=== PATIENT | male | born 1975 | race African-American/Black ===

== ENCOUNTER 2018-10-14 13:17 | Emergency (ER) | payer BC ==
[~2018-10-14] VITALS: Ht 175.3 cm; Wt 116.2 kg
[2018-10-14 17:44] VITALS: BP 131/87
[2018-10-14] MEDS ORDERED: IBUPROFEN 800MG TABLET PO ONE (17:45)
== END 2018-10-14 19:43 | disposition home or self-care (01) ==
LOC: ER 15:00
DX: S20.219A Contusion of unspecified front wall of thorax, initial encounter (principal); S20.229A Contusion of unspecified back wall of thorax, initial encounter; S60.211A Contusion of right wrist, initial encounter; V43.52XA Car driver injured in collision with other type car in traffic accident, initial encounter; Y93.89 Activity, other specified; Y92.410 Unspecified street and highway as the place of occurrence of the external cause
CPT/HCPCS: 71045; 73110; 73130; 99283

== ENCOUNTER 2022-05-31 08:54 | Emergency (ER) | payer BC, MEDICAID ==
[~2022-05-31] VITALS: Ht 175.3 cm; Wt 89.0 kg
[2022-05-31] MEDS ORDERED: IBUPROFEN 400MG TABLET PO ONE (09:45)
[2022-05-31] MEDS ORDERED: IBUP-2028 MT (10:42)
[2022-05-31 12:08] VITALS: BP 127/83
[2022-05-31] MEDS ORDERED: IBUPROFEN 400MG TABLET PO SCH (12:15)
== END 2022-05-31 12:31 | disposition home or self-care (01) ==
LOC: ER 08:54
DX: S43.491A Other sprain of right shoulder joint, initial encounter (principal); Y93.84 Activity, sleeping; Y92.013 Bedroom of single-family (private) house as the place of occurrence of the external cause
CPT/HCPCS: 73030; 99283; A4565

== ENCOUNTER 2023-05-16 09:07 | Emergency (ER) | payer MEDICAID, OTHER ==
[~2023-05-16] VITALS: Ht 174 cm; Wt 100.0 kg
[~2023-05-16 09:07] MED LIST: IBUP-2028 MT
[2023-05-16 09:14] VITALS: O2SAT 98
[2023-05-16] MEDS ORDERED: FLUT9.9S BOTHNSTRLS (11:09)
[2023-05-16] MEDS ORDERED: LORA10TA64 MT (11:09)
[2023-05-16] MEDS ORDERED: IBUP-1525 MT (11:09)
[2023-05-16] MEDS ORDERED: NEOM10DR11 LEFT EAR (11:09)
[2023-05-16 11:31] VITALS: BP 124/87; PULSE 89; RESP 16; TEMP 98.5
== END 2023-05-16 11:32 | disposition home or self-care (01) ==
LOC: ER 09:07
DX: S00.412A Abrasion of left ear, initial encounter (principal); J30.89 Other allergic rhinitis; X58.XXXA Exposure to other specified factors, initial encounter; Y93.89 Activity, other specified; Y92.89 Other specified places as the place of occurrence of the external cause; Y99.8 Other external cause status
CPT/HCPCS: 99283

== ENCOUNTER 2023-08-11 02:52 | Emergency (ER) | payer MEDICAID, OTHER ==
[~2023-08-11] VITALS: Ht 177.8 cm; Wt 98.0 kg
[~2023-08-11 02:52] MED LIST changes: +FLUT9.9S BOTHNSTRLS; +IBUP-1525 MT; +LORA10TA64 MT; +NEOM10DR11 LEFT EAR
[2023-08-11 02:58] VITALS: O2SAT 99
[2023-08-11 03:18] LABS: CLARITY URINE CLEAR (CLEAR); COLOR URINE YELLOW (YELLOW); GLUCOSE URINE NEGATIVE (NEGATIVE); KETONES URINE NEGATIVE (NEGATIVE); LEUKOCYTE ESTERASE URINE NEGATIVE (NEGATIVE); NITRITE URINE NEGATIVE (NEGATIVE); OCCULT BLOOD URINE NEGATIVE (NEGATIVE); PH URINE 5.5 (4.5-8.0); PROTEIN URINE NEGATIVE (NEGATIVE); SPECIFIC GRAVITY URINE 1.025 (1.005-1.030)
[2023-08-11 03:32] LABS: BASOPHILS % 1.1 % (0.0-2.0); EOSINOPHILS % 7.9 % (0.0-5.0); HEMATOCRIT. 39.9 % (42.0-52.0); HEMOGLOBIN. 13.5 g/dL (14.0-18.0); LYMPHOCYTES % 37.6 % (20.0-50.0); MEAN CORPUSCULAR HEMOGLOBIN 28.6 pg (28.0-32.0); MEAN CORPUSCULAR HGB CONC 33.9 g/dL (31.0-37.0); MEAN CORPUSCULAR VOLUME 84.3 fL (80.0-94.0); MEAN PLATELET VOLUME 8.1 fl (7.4-10.4); MONOCYTES % 11.9 % (2.0-8.0); NEUTROPHILS % 41.5 % (40.0-76.0); PLATELET 176 x1000/uL (130-400); RED BLOOD CELL COUNT 4.73 mill/uL (4.7-6.1); RED CELL DISTRIBUTION WIDTH 14.6 % (11.6-14.6); WHITE BLOOD COUNT 4.7 x1000/uL (4.5-11.0)
[2023-08-11 03:51] LABS: CHLORIDE 105 mEq/L (98-107); POTASSIUM 4.1 mEq/L (3.5-5.1); SODIUM 140 mEq/L (136-145)
[2023-08-11 03:52] LABS: CALCIUM 8.1 mg/dL (8.7-10.4); CARBON DIOXIDE 30 mEq/L (21-32)
[2023-08-11 03:57] LABS: CREATININE 1.1 mg/dL (0.6-1.3); GLUCOSE 95 mg/dL (70-105); UREA NITROGEN BLOOD 9 mg/dL (9-23)
[2023-08-11 03:59] LABS: ALANINE AMINOTRANSFERASE 13 IU/L (10-49); ASPARTATE AMINOTRANSFERASE 18 IU/L (<34); BILIRUBIN TOTAL 0.5 mg/dL (0.1-1.0); PROTEIN TOTAL 6.9 g/dL (6.0-8.3)
[2023-08-11 04:00] LABS: TROPONIN I HIGH SENSITIVITY < 4 ng/L (3.0-53)
[2023-08-11 06:06] VITALS: BP 128/86; PULSE 64; RESP 16; TEMP 98.9
== END 2023-08-11 07:30 | disposition left against medical advice (07) ==
LOC: ER 02:52
DX: R07.89 Other chest pain (principal)
CPT/HCPCS: 36415; 71045; 80053; 81003; 84484; 85025; 93005; 99285